=== PATIENT | female | born 1970 | race Caucasian/White ===

== ENCOUNTER 2024-02-07 22:03 | Emergency (ER) | payer BC ==
[2024-02-07] MEDS ORDERED: Acetaminophen 500 MG TAB ONE (22:34)
[2024-02-07] MEDS ORDERED: Metoclopramide HCl 10 MG (2 mL) VIAL ONE (22:34)
[2024-02-07] MEDS ORDERED: Ketorolac Tromethamine 30 MG (1 mL) VIAL ONE (22:34)
== END 2024-02-07 23:35 | disposition home or self-care (01) ==
LOC: BURERS 22:03
DX: G43.909 Migraine, unspecified, not intractable, without status migrainosus (principal); I10 Essential (primary) hypertension
CPT/HCPCS: 96374; 96375; J1885; J2765